=== PATIENT | female | born 1990 | race Caucasian/White ===

== ENCOUNTER → 2022-07-09 | Outpatient (CLI) | payer MEDICAID | END | disposition home or self-care (01) | LOC: LABWHC1 18:02 | PROVIDERS: ATTEND Physician Assistant | DX: Z20.822 Contact with and (suspected) exposure to COVID-19 (principal) | CPT/HCPCS: 87635 ==

== ENCOUNTER → 2023-01-12 | Outpatient (CLI) | payer MEDICAID ==
[2023-01-12 11:24] LABS: ALT 26 U/L (8-44); AST 16 U/L (13-35); African American GFR (CKD) 139.8 (60.0-200.0); Albumin/Globulin Ratio 1.61 (1.60-3.17); Alkaline Phosphatase 94 U/L (41-126); Blood Urea Nitrogen 15.6 mg/dL (9.0-27.0); Calcium 9.8 mg/dL (8.7-10.3); Carbon Dioxide 21.2 mmol/L (20.0-27.5); Chloride 107 mmol/L (96-109); Globulin 3.1 g/dL (1.6-3.3); Glucose 100 mg/dL (70-110); Non-African American GFR(CKD) 120.6 (60.0-200.0); Potassium 4.2 mmol/L (3.5-5.5); Sodium 140 mmol/L (135-145); Total Bilirubin <0.15 mg/dL (0.30-1.20); Total Protein 8.1 g/dL (6.2-8.2)
== END | disposition home or self-care (01) ==
LOC: LABWHC1 09:09
PROVIDERS: ATTEND Nurse Practitioner Family
DX: B35.1 Tinea unguium (principal)
CPT/HCPCS: 36415; 80053

== ENCOUNTER → 2024-01-07 | Outpatient (CLI) | payer MEDICAID ==
--- NOTE | 2024-01-07 16:52 | XR ---
EXAMINATION TYPE: XR chest 2V DATE OF EXAM: 01/07/2024 4:28 PM CLINICAL INDICATION:Female, 33 years old with history of CHEST PAIN; [facility] COMPARISON: Chest radiographs from 01/07/2024. TECHNIQUE: XR chest 2V Frontal and lateral views of the chest. FINDINGS: Lungs/Pleura: There is no evidence of pleural effusion, focal consolidation, or pneumothorax. Pulmonary vascularity: Unremarkable. Heart/mediastinum: Cardiomediastinal silhouette is unremarkable. Musculoskeletal: No acute osseous pathology. IMPRESSION: No acute cardiopulmonary disease/process.
== END | disposition home or self-care (01) ==
LOC: RADXRMAIN 16:03
PROVIDERS: ATTEND Physician Assistant
DX: R07.9 Chest pain, unspecified (principal)
CPT/HCPCS: 71046

== ENCOUNTER → 2024-07-20 | Outpatient (CLI) | payer MEDICAID ==
--- NOTE | 2024-07-20 10:39 | US ---
EXAMINATION TYPE: US abdomen comp/pelvis limited DATE OF EXAM: 07/20/2024 COMPARISON: NONE CLINICAL INDICATION: Female, 33 years old with history of R10.9 ABD PAIN R10.11 RIGHT UPPER QUADRANT PAIN; Pain TECHNIQUE: Grayscale color Doppler imaging of the abdomen and pelvis. FINDINGS: EXAM MEASUREMENTS: Liver Length: 16.8 cm Gallbladder Wall: .2 cm CBD: .4 cm Spleen: 9.9 cm Right Kidney: 10.3 x 4.9 x 5.0 cm Left Kidney: 10.7 x 6.3 x 5.0 cm Pancreas: Obscured by bowel gas Liver: Increased attenuation Gallbladder: No stones seen CBD: wnl Spleen: wnl Right Kidney: No hydronephrosis or masses seen Left Kidney: No hydronephrosis or masses seen Upper IVC: wnl Abd Aorta: wnl Bladder: Not fully distended Bilateral Jets Seen right only IMPRESSION: Borderline hepatomegaly with pattern of the liver suggestive of hepatic steatosis or unde rlying hepatocellular disease. [facility], , 07/20/2024 10:37 AM
== END | disposition home or self-care (01) ==
LOC: RADUSWWP 09:19
PROVIDERS: ATTEND Family Medicine
DX: R10.11 Right upper quadrant pain (principal)
CPT/HCPCS: 76700; 76857